=== PATIENT | male | born 1945 | race Hispanic/Latino ===

== ENCOUNTER 2020-12-25 14:03 | Emergency (ER) | payer MEDICARE ==
[2020-12-25] MEDS ORDERED: Ketorolac Tromethamine 60 MG/2 ML VIAL ONE (15:07)
== END 2020-12-25 18:00 | disposition home or self-care (01) ==
LOC: NAV ERS 14:03
DX: S76.012A Strain of muscle, fascia and tendon of left hip, initial encounter (principal); I11.0 Hypertensive heart disease with heart failure; I50.9 Heart failure, unspecified; G43.909 Migraine, unspecified, not intractable, without status migrainosus; E11.51 Type 2 diabetes mellitus with diabetic peripheral angiopathy without gangrene; E78.5 Hyperlipidemia, unspecified; Z79.899 Other long term (current) drug therapy; X50.1XXA Overexertion from prolonged static or awkward postures, initial encounter
CPT/HCPCS: 96372; J1885

== ENCOUNTER 2022-05-05 10:09 | Emergency (ER) | payer MEDICARE, OTHER ==
[2022-05-05 10:39] LABS: #Basophils 0.1 thou/uL (0.0-0.2); #Eosinphils 0.1 thou/uL (0.0-0.7); #Monocytes 0.5 thou/uL (0.11-0.59); #Neutrophils 5.5 thou/uL (1.40-6.50); %Basophils 0.8 % (0.0-1.0); %Eosinophils 1.6 % (0.0-10.0); %Lymphocytes 24.1 % (21.0-51.0); %Monocytes 5.8 % (0.0-10.0); %Neutrophils 67.6 % (42.0-75.0); Hemoglobin 11.1 g/dL (14.0-18.0); Mean Corpuscular HGB CONC 33.4 g/dL (32.0-36.0); Mean Corpuscular Hemoglobin 31.6 pg (27.0-31.0); Mean Corpuscular Volume 94.6 fl (78.0-98.0); Mean Platelet Volume 8.8 fL (7.4-10.4); Platelet Count 203 10x3/uL (130-400); RBC Distribution Width 12.4 % (11.5-14.5); Red Blood Cell (RBC) Count 3.53 mill/uL (4.70-6.10); White Blood Cell (WBC) Count 8.2 10x3/uL (4.8-10.8)
[2022-05-05 10:58] LABS: ALT (SGPT) 14 U/L (8-55); AST (SGOT) 8 U/L (5-34); Albumin 3.3 g/dL (3.4-4.8); Alkaline Phosphatase 119 U/L (40-110); Anion Gap 13 mmol/L (10-20); BUN (Urea Nitrogen) 16 mg/dL (8.4-25.7); Bilirubin, Total 0.6 mg/dL (0.2-1.2); Calc. Creatinine Clearance 0 mL/min (70-130); Calcium 8.1 mg/dL (7.8-10.44); Carbon Dioxide 25 mmol/L (23-31); Chloride 104 mmol/L (98-107); Estimated GFR 66; Globulin 3.2 g/dL (2.4-3.5); Glucose 170 mg/dL (83-110); Potassium 3.5 mmol/L (3.5-5.1); Protein, Total 6.5 g/dL (5.8-8.1); Sodium 138 mmol/L (136-145)
[2022-05-05] MEDS ORDERED: Sodium Chloride 0.9% 500 ML ONE ×2 (11:11→12:39)
[2022-05-05 12:32] LABS: Bilirubin Small (Negative); Blood, Urine Moderate (Negative); Clarity Cloudy (Clear); Glucose, Urine (Dipstick) 100 mg/dL (Negative); Ketone, Urine 15 mg/dL (Negative); Leukocyte Large (Negative); Nitrite Positive (Negative); Protein, Urine (Dipstick) > or equal to 300 mg/dL (Neg-Trace); Specific Gravity, Urine 1.028 (1.005-1.030); pH, Urine 5.5 (5.0-9.0)
[2022-05-05 12:33] LABS: Bacteria/HPF 2+ HPF (None Seen); WBC/HPF 21-50 HPF (0-3)
[2022-05-05] MEDS ORDERED: Sodium Chloride 0.9% 100 ML ONE (13:23)
[2022-05-05] MEDS ORDERED: cefTRIAXone\\ROCEPHIN 2 GM VIAL ONE (13:23)
[2022-05-05 14:10] LABS: Lactic Acid 1.6 mmol/L (0.5-2.2)
== END 2022-05-05 15:48 | disposition home or self-care (01) ==
LOC: NAV ERS 10:09
DX: N39.0 Urinary tract infection, site not specified (principal); E86.0 Dehydration; I50.9 Heart failure, unspecified; I11.0 Hypertensive heart disease with heart failure; E11.9 Type 2 diabetes mellitus without complications; E78.00 Pure hypercholesterolemia, unspecified; G43.909 Migraine, unspecified, not intractable, without status migrainosus; I25.10 Atherosclerotic heart disease of native coronary artery without angina pectoris; Z87.891 Personal history of nicotine dependence; Z79.4 Long term (current) use of insulin; Z79.02 Long term (current) use of antithrombotics/antiplatelets
CPT/HCPCS: 36416; 71045; 80053; 81003; 81015; 83605; 84484; 85025; 87040; 87086; 93005; 96365; 36415-59; J0696; J3490; J7030

== ENCOUNTER 2022-08-05 15:54 | Inpatient (IN) | payer OTHER ==
[2022-08-06] MEDS ORDERED: HumaLOG 300 UNITS/3 ML VIAL SC PRN (11:35)
[2022-08-06] MEDS ORDERED: Bisacodyl 5 MG TAB PO PRN (11:35)
[2022-08-06] MEDS ORDERED: Dextrose 50% Abboject 50 ML SYRINGE SLOW IVP PRN (11:35)
[2022-08-06] MEDS ORDERED: Ondansetron ODT 4 MG TAB SL PRN (11:35)
[2022-08-06] MEDS: Heparin 5,000 UNITS/ML VIAL SC SCH ×2 (16:15→20:38)
[2022-08-06] MEDS: metFORMIN 500 MG TAB PO SCH (16:16)
[2022-08-06] MEDS: Lantus 1000 UNITS/10 ML VIAL SC SCH (20:41)
[2022-08-06] MEDS: Montelukast Sodium 10 mg Tablet PO SCH (20:43)
[2022-08-06] MEDS: Carvedilol 6.25 MG TAB PO SCH (20:43)
[2022-08-06] MEDS: Sacubitril 49 MG/Valsartan 51 MG TABLET PO SCH (20:43)
[2022-08-06] MEDS: Gabapentin 100 MG CAP PO SCH (20:46)
[2022-08-06] MEDS ORDERED: Lantus 1000 UNITS/10 ML VIAL SC SCH (21:00)
[2022-08-06] MEDS ORDERED: Carvedilol 3.125 MG TAB PO SCH ×2 (21:00)
[2022-08-06] MEDS ORDERED: Non-Formulary Item 1 EACH (Ranolazine [Ranexa] 1,000 MG Tab.Er.12h) PO SCH (21:00)
[2022-08-06] MEDS ORDERED: Atorvastatin Calcium 40 MG TAB PO SCH (21:00)
[2022-08-07 05:49] LABS: #Basophils 0.2 thou/uL (0.0-0.2); #Eosinphils 0.2 thou/uL (0.0-0.7); #Lymphocytes 2.4 thou/uL (1.20-3.40); #Monocytes 0.8 thou/uL (0.11-0.59); #Neutrophils 7.1 thou/uL (1.40-6.50); %Basophils 1.5 % (0.0-1.0); %Eosinophils 2.3 % (0.0-10.0); %Lymphocytes 22.3 % (21.0-51.0); %Monocytes 7.5 % (0.0-10.0); %Neutrophils 66.4 % (42.0-75.0); Hemoglobin 10.4 g/dL (14.0-18.0); Mean Corpuscular HGB CONC 32.6 g/dL (32.0-36.0); Mean Corpuscular Hemoglobin 30.6 pg (27.0-31.0); Mean Platelet Volume 7.7 fL (7.4-10.4); Platelet Count 254 10x3/uL (130-400); RBC Distribution Width 13.3 % (11.5-14.5); Red Blood Cell (RBC) Count 3.39 mill/uL (4.70-6.10); White Blood Cell (WBC) Count 10.6 10x3/uL (4.8-10.8)
[2022-08-07 05:51] LABS: ALT (SGPT) 16 U/L (8-55); AST (SGOT) 15 U/L (5-34); Albumin 3.6 g/dL (3.4-4.8); Alkaline Phosphatase 72 U/L (40-110); Anion Gap 14 mmol/L (10-20); BUN (Urea Nitrogen) 29 mg/dL (8.4-25.7); Bilirubin, Total 0.6 mg/dL (0.2-1.2); Calc. Creatinine Clearance 58 mL/min (70-130); Calcium 8.5 mg/dL (7.8-10.44); Carbon Dioxide 23 mmol/L (23-31); Chloride 104 mmol/L (98-107); Estimated GFR 65; Globulin 3.4 g/dL (2.4-3.5); Glucose 106 mg/dL (83-110); Potassium 3.7 mmol/L (3.5-5.1); Sodium 137 mmol/L (136-145)
[2022-08-07] MEDS: metFORMIN 500 MG TAB PO SCH ×2 (08:31→16:10)
[2022-08-07] MEDS: Clopidogrel Bisulfate 75 MG TAB PO SCH (08:32)
[2022-08-07] MEDS: Aspirin 81 mg Enteric Coated Tablet PO SCH (08:32)
[2022-08-07] MEDS: Carvedilol 6.25 MG TAB PO SCH ×2 (08:32→20:22)
[2022-08-07] MEDS: Sacubitril 49 MG/Valsartan 51 MG TABLET PO SCH ×2 (08:32→20:22)
[2022-08-07] MEDS: Gabapentin 100 MG CAP PO SCH ×2 (08:33→20:22)
[2022-08-07] MEDS: Atorvastatin Calcium 40 MG TAB PO SCH (08:33)
[2022-08-07] MEDS: Tamsulosin HCl 0.4 MG CAP PO SCH (08:33)
[2022-08-07] MEDS: Spironolactone 25 MG TAB PO SCH (08:33)
[2022-08-07] MEDS: Heparin 5,000 UNITS/ML VIAL SC SCH ×3 (08:45→20:19)
[2022-08-07] MEDS ORDERED: Tamsulosin HCl 0.4 MG CAP PO SCH (09:00)
[2022-08-07 09:14] LABS: Bilirubin Small (Negative); Blood, Urine Moderate (Negative); Clarity Cloudy (Clear); Glucose, Urine (Dipstick) Negative (Negative); Ketone, Urine Negative (Negative); Leukocyte Large (Negative); Nitrite Negative (Negative); Protein, Urine (Dipstick) 100 mg/dL (Neg-Trace)
[2022-08-07 09:18] LABS: pH, Urine Greater/Equal 9.0 (5.0-9.0)
[2022-08-07 09:19] LABS: Bacteria/HPF 4+ HPF (None Seen); RBC/HPF 21-50 HPF (0-3); WBC/HPF Greater Than 50 HPF (0-3)
[2022-08-07] MEDS: cefTRIAXone\\ROCEPHIN 1 GM in Sodium Chloride 0.9% 100 ML IVPB SCH (12:21)
[2022-08-07] MEDS: HumaLOG 300 UNITS/3 ML VIAL SC PRN (19:13)
[2022-08-07] MEDS: Montelukast Sodium 10 mg Tablet PO SCH (20:22)
[2022-08-07] MEDS: Lantus 1000 UNITS/10 ML VIAL SC SCH (20:33)
[2022-08-07] MEDS: traMADol HCl 50 MG TAB PO PRN (22:29)
[2022-08-08] MEDS: Gabapentin 100 MG CAP PO SCH ×2 (07:50→20:19)
[2022-08-08] MEDS: Tamsulosin HCl 0.4 MG CAP PO SCH (07:50)
[2022-08-08] MEDS: metFORMIN 500 MG TAB PO SCH ×2 (07:50→17:47)
[2022-08-08] MEDS: Aspirin 81 mg Enteric Coated Tablet PO SCH (07:50)
[2022-08-08] MEDS: Sacubitril 49 MG/Valsartan 51 MG TABLET PO SCH ×2 (07:50→20:19)
[2022-08-08] MEDS: Carvedilol 6.25 MG TAB PO SCH ×2 (07:51→20:18)
[2022-08-08] MEDS: Spironolactone 25 MG TAB PO SCH (07:51)
[2022-08-08] MEDS: Clopidogrel Bisulfate 75 MG TAB PO SCH (07:53)
[2022-08-08] MEDS: Atorvastatin Calcium 40 MG TAB PO SCH (07:54)
[2022-08-08] MEDS: Heparin 5,000 UNITS/ML VIAL SC SCH ×3 (08:00→20:23)
[2022-08-08] MEDS: Senokot S 8.6-50 MG TAB PO PRN (09:52)
[2022-08-08] MEDS: cefTRIAXone\\ROCEPHIN 1 GM in Sodium Chloride 0.9% 100 ML IVPB SCH (10:00)
[2022-08-08] MEDS: Montelukast Sodium 10 mg Tablet PO SCH (20:18)
[2022-08-08] MEDS: Lantus 1000 UNITS/10 ML VIAL SC SCH (20:23)
[2022-08-09 05:55] LABS: #Lymphocytes 1.9 thou/uL (1.20-3.40); #Monocytes 0.8 thou/uL (0.11-0.59); #Neutrophils 7.8 thou/uL (1.40-6.50); %Basophils 1.5 % (0.0-1.0); %Eosinophils 1.9 % (0.0-10.0); %Lymphocytes 17.3 % (21.0-51.0); %Monocytes 7.1 % (0.0-10.0); %Neutrophils 72.2 % (42.0-75.0); Hemoglobin 10.4 g/dL (14.0-18.0); Manual Diff?? NO; Mean Corpuscular HGB CONC 32.4 g/dL (32.0-36.0); Mean Corpuscular Hemoglobin 30.8 pg (27.0-31.0); Mean Platelet Volume 7.6 fL (7.4-10.4); Platelet Count 274 10x3/uL (130-400); RBC Distribution Width 13.3 % (11.5-14.5); Red Blood Cell (RBC) Count 3.39 mill/uL (4.70-6.10); White Blood Cell (WBC) Count 10.8 10x3/uL (4.8-10.8)
[2022-08-09 05:56] LABS: #Basophils 0.2 thou/uL (0.0-0.2); #Eosinphils 0.2 thou/uL (0.0-0.7)
[2022-08-09 06:07] LABS: Anion Gap 16 mmol/L (10-20); BUN (Urea Nitrogen) 31 mg/dL (8.4-25.7); Calc. Creatinine Clearance 55 mL/min (70-130); Calcium 8.3 mg/dL (7.8-10.44); Carbon Dioxide 23 mmol/L (23-31); Chloride 105 mmol/L (98-107); Estimated GFR 61; Glucose 116 mg/dL (83-110); Potassium 3.8 mmol/L (3.5-5.1); Sodium 140 mmol/L (136-145)
[2022-08-09] MEDS: traMADol HCl 50 MG TAB PO PRN (08:58)
[2022-08-09] MEDS: Tamsulosin HCl 0.4 MG CAP PO SCH (08:59)
[2022-08-09] MEDS: metFORMIN 500 MG TAB PO SCH ×2 (08:59→17:54)
[2022-08-09] MEDS: Aspirin 81 mg Enteric Coated Tablet PO SCH (08:59)
[2022-08-09] MEDS: Sacubitril 49 MG/Valsartan 51 MG TABLET PO SCH ×2 (08:59→20:02)
[2022-08-09] MEDS: Spironolactone 25 MG TAB PO SCH (08:59)
[2022-08-09] MEDS: Atorvastatin Calcium 40 MG TAB PO SCH (09:00)
[2022-08-09] MEDS: Clopidogrel Bisulfate 75 MG TAB PO SCH (09:00)
[2022-08-09] MEDS: Gabapentin 100 MG CAP PO SCH ×2 (09:00→20:01)
[2022-08-09] MEDS: Carvedilol 6.25 MG TAB PO SCH ×2 (09:01→20:01)
[2022-08-09] MEDS: Heparin 5,000 UNITS/ML VIAL SC SCH ×3 (09:09→20:02)
[2022-08-09] MEDS ORDERED: Piperacillin/Tazobactam 3.375 GM in Sodium Chloride 0.9% 100 ML IVPB SCH ×2 (12:00→14:00)
[2022-08-09] MEDS ORDERED: Amlodipine 5 MG TAB PO SCH (12:45)
[2022-08-09] MEDS: Lantus 1000 UNITS/10 ML VIAL SC SCH (20:00)
[2022-08-09] MEDS: Montelukast Sodium 10 mg Tablet PO SCH (20:02)
[2022-08-09] MEDS: Piperacillin/Tazobactam 3.375 GM in Sodium Chloride 0.9% 100 ML IVPB SCH (20:43)
[2022-08-10] MEDS: Piperacillin/Tazobactam 3.375 GM in Sodium Chloride 0.9% 100 ML IVPB SCH ×3 (05:44→21:51)
[2022-08-10] MEDS: traMADol HCl 50 MG TAB PO PRN (08:58)
[2022-08-10] MEDS: Heparin 5,000 UNITS/ML VIAL SC SCH ×3 (08:58→21:40)
[2022-08-10] MEDS: Tamsulosin HCl 0.4 MG CAP PO SCH (08:59)
[2022-08-10] MEDS: Atorvastatin Calcium 40 MG TAB PO SCH (08:59)
[2022-08-10] MEDS: Aspirin 81 mg Enteric Coated Tablet PO SCH (08:59)
[2022-08-10] MEDS: Spironolactone 25 MG TAB PO SCH (09:00)
[2022-08-10] MEDS: Amlodipine 5 MG TAB PO SCH (09:00)
[2022-08-10] MEDS: metFORMIN 500 MG TAB PO SCH ×2 (09:00→17:51)
[2022-08-10] MEDS: Clopidogrel Bisulfate 75 MG TAB PO SCH (09:01)
[2022-08-10] MEDS: Gabapentin 100 MG CAP PO SCH ×2 (09:01→21:38)
[2022-08-10] MEDS: Sacubitril 49 MG/Valsartan 51 MG TABLET PO SCH ×2 (09:01→21:38)
[2022-08-10] MEDS: Carvedilol 6.25 MG TAB PO SCH ×2 (09:01→21:39)
[2022-08-10] MEDS: Acetaminophen 325 MG TAB PO PRN (12:49)
[2022-08-10] MEDS: Montelukast Sodium 10 mg Tablet PO SCH (21:39)
[2022-08-10] MEDS: Lantus 1000 UNITS/10 ML VIAL SC SCH (21:40)
[2022-08-11] MEDS: Piperacillin/Tazobactam 3.375 GM in Sodium Chloride 0.9% 100 ML IVPB SCH ×3 (05:41→21:44)
[2022-08-11 06:04] LABS: #Basophils 0.1 thou/uL (0.0-0.2); #Eosinphils 0.2 thou/uL (0.0-0.7); #Lymphocytes 1.9 thou/uL (1.20-3.40); #Monocytes 0.7 thou/uL (0.11-0.59); #Neutrophils 6.9 thou/uL (1.40-6.50); %Basophils 1.4 % (0.0-1.0); %Lymphocytes 19.5 % (21.0-51.0); %Monocytes 7.4 % (0.0-10.0); %Neutrophils 69.7 % (42.0-75.0); Hemoglobin 9.5 g/dL (14.0-18.0); Mean Corpuscular Hemoglobin 31.3 pg (27.0-31.0); Mean Corpuscular Volume 94.8 fl (78.0-98.0); Mean Platelet Volume 7.7 fL (7.4-10.4); Platelet Count 235 10x3/uL (130-400); RBC Distribution Width 13.6 % (11.5-14.5); Red Blood Cell (RBC) Count 3.04 mill/uL (4.70-6.10); White Blood Cell (WBC) Count 9.9 10x3/uL (4.8-10.8)
[2022-08-11 06:12] LABS: Anion Gap 15 mmol/L (10-20); BUN (Urea Nitrogen) 27 mg/dL (8.4-25.7); Calc. Creatinine Clearance 47 mL/min (70-130); Carbon Dioxide 21 mmol/L (23-31); Chloride 107 mmol/L (98-107); Estimated GFR 50; Glucose 103 mg/dL (83-110); Potassium 4.1 mmol/L (3.5-5.1); Sodium 139 mmol/L (136-145)
[2022-08-11] MEDS: Gabapentin 100 MG CAP PO SCH ×2 (08:12→21:44)
[2022-08-11] MEDS: Spironolactone 25 MG TAB PO SCH (08:12)
[2022-08-11] MEDS: Carvedilol 6.25 MG TAB PO SCH ×2 (08:13→21:45)
[2022-08-11] MEDS: Tamsulosin HCl 0.4 MG CAP PO SCH (08:14)
[2022-08-11] MEDS: Amlodipine 5 MG TAB PO SCH (08:14)
[2022-08-11] MEDS: Aspirin 81 mg Enteric Coated Tablet PO SCH (08:14)
[2022-08-11] MEDS: metFORMIN 500 MG TAB PO SCH ×2 (08:14→17:06)
[2022-08-11] MEDS: Clopidogrel Bisulfate 75 MG TAB PO SCH (08:14)
[2022-08-11] MEDS: Sacubitril 49 MG/Valsartan 51 MG TABLET PO SCH ×2 (08:15→21:45)
[2022-08-11] MEDS: Atorvastatin Calcium 40 MG TAB PO SCH (08:15)
[2022-08-11] MEDS: Heparin 5,000 UNITS/ML VIAL SC SCH ×3 (08:18→21:45)
[2022-08-11] MEDS: traMADol HCl 50 MG TAB PO PRN (12:33)
[2022-08-11] MEDS: Montelukast Sodium 10 mg Tablet PO SCH (21:45)
[2022-08-11] MEDS: Lantus 1000 UNITS/10 ML VIAL SC SCH (21:46)
[2022-08-12] MEDS: Piperacillin/Tazobactam 3.375 GM in Sodium Chloride 0.9% 100 ML IVPB SCH ×3 (05:44→21:22)
[2022-08-12] MEDS: traMADol HCl 50 MG TAB PO PRN (05:52)
[2022-08-12] MEDS: Sacubitril 49 MG/Valsartan 51 MG TABLET PO SCH ×2 (07:49→21:23)
[2022-08-12] MEDS: Aspirin 81 mg Enteric Coated Tablet PO SCH ×3 (07:50→08:00)
[2022-08-12] MEDS: Clopidogrel Bisulfate 75 MG TAB PO SCH (07:50)
[2022-08-12] MEDS: Carvedilol 6.25 MG TAB PO SCH ×2 (07:50→21:23)
[2022-08-12] MEDS: Atorvastatin Calcium 40 MG TAB PO SCH (07:50)
[2022-08-12] MEDS: Amlodipine 5 MG TAB PO SCH (07:53)
[2022-08-12] MEDS: metFORMIN 500 MG TAB PO SCH ×2 (07:53→16:29)
[2022-08-12] MEDS: Tamsulosin HCl 0.4 MG CAP PO SCH (07:53)
[2022-08-12] MEDS: Gabapentin 100 MG CAP PO SCH ×2 (07:54→21:24)
[2022-08-12] MEDS: Spironolactone 25 MG TAB PO SCH (07:55)
[2022-08-12] MEDS: Heparin 5,000 UNITS/ML VIAL SC SCH ×3 (08:30→21:23)
[2022-08-12] MEDS: Senokot S 8.6-50 MG TAB PO PRN (09:48)
[2022-08-12] MEDS: Montelukast Sodium 10 mg Tablet PO SCH (21:23)
[2022-08-12] MEDS: Lantus 1000 UNITS/10 ML VIAL SC SCH (21:25)
[2022-08-13] MEDS: Acetaminophen 325 MG TAB PO PRN ×2 (05:31→13:14)
[2022-08-13] MEDS: Piperacillin/Tazobactam 3.375 GM in Sodium Chloride 0.9% 100 ML IVPB SCH ×3 (05:32→21:54)
[2022-08-13] MEDS: Heparin 5,000 UNITS/ML VIAL SC SCH ×3 (08:32→21:47)
[2022-08-13] MEDS: traMADol HCl 50 MG TAB PO PRN ×2 (08:32→21:53)
[2022-08-13] MEDS: Gabapentin 100 MG CAP PO SCH ×2 (08:34→21:48)
[2022-08-13] MEDS: Sacubitril 49 MG/Valsartan 51 MG TABLET PO SCH ×2 (08:34→21:47)
[2022-08-13] MEDS: Clopidogrel Bisulfate 75 MG TAB PO SCH (08:34)
[2022-08-13] MEDS: Atorvastatin Calcium 40 MG TAB PO SCH (08:35)
[2022-08-13] MEDS: metFORMIN 500 MG TAB PO SCH ×2 (08:35→19:30)
[2022-08-13] MEDS: Spironolactone 25 MG TAB PO SCH (08:35)
[2022-08-13] MEDS: Aspirin 81 mg Enteric Coated Tablet PO SCH (08:35)
[2022-08-13] MEDS: Tamsulosin HCl 0.4 MG CAP PO SCH (08:35)
[2022-08-13] MEDS: Amlodipine 5 MG TAB PO SCH (08:35)
[2022-08-13] MEDS: Carvedilol 6.25 MG TAB PO SCH ×2 (08:36→21:48)
[2022-08-13] MEDS: Lantus 1000 UNITS/10 ML VIAL SC SCH (21:52)
[2022-08-13] MEDS: Montelukast Sodium 10 mg Tablet PO SCH (21:53)
[2022-08-14] MEDS: Piperacillin/Tazobactam 3.375 GM in Sodium Chloride 0.9% 100 ML IVPB SCH ×3 (05:49→21:55)
[2022-08-14] MEDS ORDERED: Amlodipine 5 MG TAB PO SCH (06:05)
[2022-08-14] MEDS: Heparin 5,000 UNITS/ML VIAL SC SCH ×3 (09:15→21:55)
[2022-08-14] MEDS: Aspirin 81 mg Enteric Coated Tablet PO SCH (09:17)
[2022-08-14] MEDS: Clopidogrel Bisulfate 75 MG TAB PO SCH (09:17)
[2022-08-14] MEDS: Spironolactone 25 MG TAB PO SCH (09:17)
[2022-08-14] MEDS: Tamsulosin HCl 0.4 MG CAP PO SCH (09:17)
[2022-08-14] MEDS: Sacubitril 49 MG/Valsartan 51 MG TABLET PO SCH ×2 (09:17→21:54)
[2022-08-14] MEDS: Atorvastatin Calcium 40 MG TAB PO SCH (09:17)
[2022-08-14] MEDS: Gabapentin 100 MG CAP PO SCH ×2 (09:17→21:54)
[2022-08-14] MEDS: Amlodipine 10 MG TAB PO SCH (09:17)
[2022-08-14] MEDS: metFORMIN 500 MG TAB PO SCH ×2 (09:18→17:13)
[2022-08-14] MEDS: Carvedilol 6.25 MG TAB PO SCH ×2 (09:18→21:53)
[2022-08-14] MEDS: Acetaminophen 325 MG TAB PO PRN (09:28)
[2022-08-14] MEDS: Montelukast Sodium 10 mg Tablet PO SCH (21:55)
[2022-08-14] MEDS: Lantus 1000 UNITS/10 ML VIAL SC SCH (21:55)
[2022-08-15] MEDS: Acetaminophen 325 MG TAB PO PRN (05:51)
[2022-08-15 05:59] LABS: #Basophils 0.1 thou/uL (0.0-0.2); #Eosinphils 0.3 thou/uL (0.0-0.7); #Lymphocytes 2.3 thou/uL (1.20-3.40); #Monocytes 0.6 thou/uL (0.11-0.59); #Neutrophils 6.5 thou/uL (1.40-6.50); %Basophils 1.3 % (0.0-1.0); %Eosinophils 3.2 % (0.0-10.0); %Lymphocytes 23.5 % (21.0-51.0); %Monocytes 5.9 % (0.0-10.0); %Neutrophils 66.1 % (42.0-75.0); Hemoglobin 9.8 g/dL (14.0-18.0); Mean Corpuscular HGB CONC 32.5 g/dL (32.0-36.0); Mean Corpuscular Volume 95.4 fl (78.0-98.0); Mean Platelet Volume 7.5 fL (7.4-10.4); Platelet Count 236 10x3/uL (130-400); RBC Distribution Width 13.5 % (11.5-14.5); Red Blood Cell (RBC) Count 3.17 mill/uL (4.70-6.10); White Blood Cell (WBC) Count 9.9 10x3/uL (4.8-10.8)
[2022-08-15 06:05] LABS: Anion Gap 16 mmol/L (10-20); BUN (Urea Nitrogen) 17 mg/dL (8.4-25.7); Calc. Creatinine Clearance 79 mL/min (70-130); Calcium 7.9 mg/dL (7.8-10.44); Carbon Dioxide 22 mmol/L (23-31); Chloride 107 mmol/L (98-107); Estimated GFR 89; Glucose 90 mg/dL (83-110); Potassium 3.5 mmol/L (3.5-5.1); Sodium 141 mmol/L (136-145)
[2022-08-15] MEDS: metFORMIN 500 MG TAB PO SCH ×2 (09:08→17:05)
[2022-08-15] MEDS: Spironolactone 25 MG TAB PO SCH (09:10)
[2022-08-15] MEDS: Aspirin 81 mg Enteric Coated Tablet PO SCH (09:10)
[2022-08-15] MEDS: Amlodipine 10 MG TAB PO SCH (09:10)
[2022-08-15] MEDS: Sacubitril 49 MG/Valsartan 51 MG TABLET PO SCH ×2 (09:11→20:50)
[2022-08-15] MEDS: Carvedilol 6.25 MG TAB PO SCH ×2 (09:11→20:57)
[2022-08-15] MEDS: Tamsulosin HCl 0.4 MG CAP PO SCH (09:12)
[2022-08-15] MEDS: Clopidogrel Bisulfate 75 MG TAB PO SCH (09:12)
[2022-08-15] MEDS: Atorvastatin Calcium 40 MG TAB PO SCH (09:13)
[2022-08-15] MEDS: Gabapentin 100 MG CAP PO SCH ×2 (09:14→20:50)
[2022-08-15] MEDS: Heparin 5,000 UNITS/ML VIAL SC SCH ×3 (09:15→20:50)
[2022-08-15] MEDS: Montelukast Sodium 10 mg Tablet PO SCH (20:50)
[2022-08-15] MEDS: Lantus 1000 UNITS/10 ML VIAL SC SCH (20:50)
[2022-08-15] MEDS: traMADol HCl 50 MG TAB PO PRN (20:52)
[2022-08-16] MEDS: Amlodipine 10 MG TAB PO SCH (08:34)
[2022-08-16] MEDS: metFORMIN 500 MG TAB PO SCH ×2 (08:34→17:12)
[2022-08-16] MEDS: Tamsulosin HCl 0.4 MG CAP PO SCH (08:34)
[2022-08-16] MEDS: Gabapentin 100 MG CAP PO SCH ×2 (08:35→22:03)
[2022-08-16] MEDS: Sacubitril 49 MG/Valsartan 51 MG TABLET PO SCH ×2 (08:38→22:02)
[2022-08-16] MEDS: Atorvastatin Calcium 40 MG TAB PO SCH (08:38)
[2022-08-16] MEDS: Heparin 5,000 UNITS/ML VIAL SC SCH ×3 (08:38→22:04)
[2022-08-16] MEDS: Carvedilol 6.25 MG TAB PO SCH ×2 (08:38→22:02)
[2022-08-16] MEDS: Spironolactone 25 MG TAB PO SCH (08:38)
[2022-08-16] MEDS: Clopidogrel Bisulfate 75 MG TAB PO SCH (08:38)
[2022-08-16] MEDS: Aspirin 81 mg Enteric Coated Tablet PO SCH (08:39)
[2022-08-16] MEDS: traMADol HCl 50 MG TAB PO PRN (08:42)
[2022-08-16] MEDS: Montelukast Sodium 10 mg Tablet PO SCH (22:02)
[2022-08-16] MEDS: Lantus 1000 UNITS/10 ML VIAL SC SCH (22:04)
[2022-08-17] MEDS: Heparin 5,000 UNITS/ML VIAL SC SCH ×3 (08:26→21:15)
[2022-08-17] MEDS: Sacubitril 49 MG/Valsartan 51 MG TABLET PO SCH ×2 (08:27→21:12)
[2022-08-17] MEDS: Gabapentin 100 MG CAP PO SCH ×2 (08:27→21:12)
[2022-08-17] MEDS: Tamsulosin HCl 0.4 MG CAP PO SCH (08:29)
[2022-08-17] MEDS: Amlodipine 10 MG TAB PO SCH (08:29)
[2022-08-17] MEDS: Carvedilol 6.25 MG TAB PO SCH ×2 (08:29→21:12)
[2022-08-17] MEDS: Spironolactone 25 MG TAB PO SCH (08:29)
[2022-08-17] MEDS: Clopidogrel Bisulfate 75 MG TAB PO SCH (08:29)
[2022-08-17] MEDS: metFORMIN 500 MG TAB PO SCH ×2 (08:29→17:40)
[2022-08-17] MEDS: Atorvastatin Calcium 40 MG TAB PO SCH (08:29)
[2022-08-17] MEDS: Aspirin 81 mg Enteric Coated Tablet PO SCH (08:30)
[2022-08-17] MEDS: Montelukast Sodium 10 mg Tablet PO SCH (21:12)
[2022-08-17] MEDS: Lantus 1000 UNITS/10 ML VIAL SC SCH (21:13)
[2022-08-18 05:45] LABS: #Basophils 0.1 thou/uL (0.0-0.2); #Eosinphils 0.2 thou/uL (0.0-0.7); #Lymphocytes 2.5 thou/uL (1.20-3.40); #Monocytes 0.5 thou/uL (0.11-0.59); #Neutrophils 6.4 thou/uL (1.40-6.50); %Basophils 0.7 % (0.0-1.0); %Lymphocytes 25.7 % (21.0-51.0); %Monocytes 5.5 % (0.0-10.0); Mean Corpuscular HGB CONC 33.3 g/dL (32.0-36.0); Mean Corpuscular Hemoglobin 31.4 pg (27.0-31.0); Mean Corpuscular Volume 94.3 fl (78.0-98.0); Mean Platelet Volume 7.9 fL (7.4-10.4); Platelet Count 216 10x3/uL (130-400); RBC Distribution Width 13.8 % (11.5-14.5); Red Blood Cell (RBC) Count 2.88 mill/uL (4.70-6.10); White Blood Cell (WBC) Count 9.8 10x3/uL (4.8-10.8)
[2022-08-18 05:55] LABS: Anion Gap 16 mmol/L (10-20); BUN (Urea Nitrogen) 14 mg/dL (8.4-25.7); Calc. Creatinine Clearance 74 mL/min (70-130); Calcium 7.8 mg/dL (7.8-10.44); Carbon Dioxide 22 mmol/L (23-31); Chloride 107 mmol/L (98-107); Estimated GFR 86; Glucose 93 mg/dL (83-110); Potassium 3.6 mmol/L (3.5-5.1); Sodium 141 mmol/L (136-145)
[2022-08-18] MEDS: Heparin 5,000 UNITS/ML VIAL SC SCH ×3 (08:23→21:12)
[2022-08-18] MEDS: Amlodipine 10 MG TAB PO SCH (08:24)
[2022-08-18] MEDS: Clopidogrel Bisulfate 75 MG TAB PO SCH (08:24)
[2022-08-18] MEDS: Carvedilol 6.25 MG TAB PO SCH ×2 (08:24→21:12)
[2022-08-18] MEDS: Tamsulosin HCl 0.4 MG CAP PO SCH (08:24)
[2022-08-18] MEDS: metFORMIN 500 MG TAB PO SCH ×2 (08:24→17:11)
[2022-08-18] MEDS: Aspirin 81 mg Enteric Coated Tablet PO SCH (08:24)
[2022-08-18] MEDS: Sacubitril 49 MG/Valsartan 51 MG TABLET PO SCH ×2 (08:25→21:12)
[2022-08-18] MEDS: Gabapentin 100 MG CAP PO SCH ×2 (08:25→21:11)
[2022-08-18] MEDS: Atorvastatin Calcium 40 MG TAB PO SCH (08:26)
[2022-08-18] MEDS: Spironolactone 25 MG TAB PO SCH (08:26)
[2022-08-18] MEDS ORDERED: Collagenase 250 UNITS/GM Ointment 30 GM TUBE TOP SCH (14:00)
[2022-08-18] MEDS: Lantus 1000 UNITS/10 ML VIAL SC SCH (21:08)
[2022-08-18] MEDS: Montelukast Sodium 10 mg Tablet PO SCH (21:12)
[2022-08-19] MEDS: Carvedilol 6.25 MG TAB PO SCH (08:13)
[2022-08-19] MEDS: Clopidogrel Bisulfate 75 MG TAB PO SCH (08:13)
[2022-08-19] MEDS: Spironolactone 25 MG TAB PO SCH (08:13)
[2022-08-19] MEDS: Tamsulosin HCl 0.4 MG CAP PO SCH (08:13)
[2022-08-19] MEDS: metFORMIN 500 MG TAB PO SCH ×2 (08:14→16:45)
[2022-08-19] MEDS: Sacubitril 49 MG/Valsartan 51 MG TABLET PO SCH ×2 (08:14→21:01)
[2022-08-19] MEDS: Atorvastatin Calcium 40 MG TAB PO SCH (08:15)
[2022-08-19] MEDS: Amlodipine 10 MG TAB PO SCH (08:15)
[2022-08-19] MEDS: Gabapentin 100 MG CAP PO SCH ×2 (08:15→21:02)
[2022-08-19] MEDS: Aspirin 81 mg Enteric Coated Tablet PO SCH (08:15)
[2022-08-19] MEDS: Heparin 5,000 UNITS/ML VIAL SC SCH ×3 (08:20→21:02)
[2022-08-19] MEDS: Carvedilol 25 MG TAB PO SCH (21:01)
[2022-08-19] MEDS: Montelukast Sodium 10 mg Tablet PO SCH (21:01)
[2022-08-19] MEDS: Lantus 1000 UNITS/10 ML VIAL SC SCH (21:05)
[2022-08-20] MEDS: Atorvastatin Calcium 40 MG TAB PO SCH (07:50)
[2022-08-20] MEDS: Spironolactone 25 MG TAB PO SCH (07:50)
[2022-08-20] MEDS: Clopidogrel Bisulfate 75 MG TAB PO SCH (07:50)
[2022-08-20] MEDS: Amlodipine 10 MG TAB PO SCH (07:51)
[2022-08-20] MEDS: Aspirin 81 mg Enteric Coated Tablet PO SCH (07:51)
[2022-08-20] MEDS: Carvedilol 25 MG TAB PO SCH ×2 (07:51→20:50)
[2022-08-20] MEDS: Tamsulosin HCl 0.4 MG CAP PO SCH (07:51)
[2022-08-20] MEDS: Gabapentin 100 MG CAP PO SCH ×2 (07:52→20:49)
[2022-08-20] MEDS: metFORMIN 500 MG TAB PO SCH ×2 (07:52→15:36)
[2022-08-20] MEDS: Sacubitril 49 MG/Valsartan 51 MG TABLET PO SCH ×2 (07:52→20:49)
[2022-08-20] MEDS: Heparin 5,000 UNITS/ML VIAL SC SCH ×3 (07:53→20:50)
[2022-08-20] MEDS: Acetaminophen 325 MG TAB PO PRN (11:11)
[2022-08-20] MEDS: Collagenase 250 UNITS/GM Ointment 30 GM TUBE TOP SCH (13:26)
[2022-08-20] MEDS: traMADol HCl 50 MG TAB PO PRN (15:40)
[2022-08-20] MEDS: Montelukast Sodium 10 mg Tablet PO SCH (20:49)
[2022-08-20] MEDS: Lantus 1000 UNITS/10 ML VIAL SC SCH (20:51)
[2022-08-21] MEDS: Heparin 5,000 UNITS/ML VIAL SC SCH ×3 (07:50→20:49)
[2022-08-21] MEDS: Gabapentin 100 MG CAP PO SCH ×2 (07:51→20:48)
[2022-08-21] MEDS: Amlodipine 10 MG TAB PO SCH (07:52)
[2022-08-21] MEDS: metFORMIN 500 MG TAB PO SCH ×2 (07:52→16:36)
[2022-08-21] MEDS: Spironolactone 25 MG TAB PO SCH (07:52)
[2022-08-21] MEDS: Clopidogrel Bisulfate 75 MG TAB PO SCH (07:52)
[2022-08-21] MEDS: Atorvastatin Calcium 40 MG TAB PO SCH (07:53)
[2022-08-21] MEDS: Sacubitril 49 MG/Valsartan 51 MG TABLET PO SCH ×2 (07:53→20:48)
[2022-08-21] MEDS: Tamsulosin HCl 0.4 MG CAP PO SCH (07:53)
[2022-08-21] MEDS: Aspirin 81 mg Enteric Coated Tablet PO SCH (07:53)
[2022-08-21] MEDS: Carvedilol 25 MG TAB PO SCH ×2 (07:53→20:48)
[2022-08-21] MEDS: traMADol HCl 50 MG TAB PO PRN (08:01)
[2022-08-21] MEDS: Montelukast Sodium 10 mg Tablet PO SCH (20:48)
[2022-08-21] MEDS: Lantus 1000 UNITS/10 ML VIAL SC SCH (21:43)
[2022-08-22 05:09] VITALS: BMI 29.9
[2022-08-22] MEDS: Sacubitril 49 MG/Valsartan 51 MG TABLET PO SCH ×2 (09:45→20:47)
[2022-08-22] MEDS: Tamsulosin HCl 0.4 MG CAP PO SCH (09:45)
[2022-08-22] MEDS: Heparin 5,000 UNITS/ML VIAL SC SCH ×3 (09:45→20:49)
[2022-08-22] MEDS: metFORMIN 500 MG TAB PO SCH ×2 (09:46→17:07)
[2022-08-22] MEDS: Amlodipine 10 MG TAB PO SCH (09:46)
[2022-08-22] MEDS: Carvedilol 25 MG TAB PO SCH ×2 (09:46→20:47)
[2022-08-22] MEDS: Aspirin 81 mg Enteric Coated Tablet PO SCH (09:46)
[2022-08-22] MEDS: Spironolactone 25 MG TAB PO SCH (09:46)
[2022-08-22] MEDS: Atorvastatin Calcium 40 MG TAB PO SCH (09:46)
[2022-08-22] MEDS: Clopidogrel Bisulfate 75 MG TAB PO SCH (09:46)
[2022-08-22] MEDS: Gabapentin 100 MG CAP PO SCH ×2 (09:47→20:48)
[2022-08-22] MEDS: Montelukast Sodium 10 mg Tablet PO SCH (20:47)
[2022-08-22] MEDS: Lantus 1000 UNITS/10 ML VIAL SC SCH (20:50)
[2022-08-23] MEDS: Heparin 5,000 UNITS/ML VIAL SC SCH ×3 (07:56→21:21)
[2022-08-23] MEDS: traMADol HCl 50 MG TAB PO PRN ×2 (08:00→13:52)
[2022-08-23] MEDS: metFORMIN 500 MG TAB PO SCH ×2 (08:02→15:09)
[2022-08-23] MEDS: Tamsulosin HCl 0.4 MG CAP PO SCH (08:02)
[2022-08-23] MEDS: Sacubitril 49 MG/Valsartan 51 MG TABLET PO SCH ×2 (08:03→21:20)
[2022-08-23] MEDS: Amlodipine 10 MG TAB PO SCH (08:03)
[2022-08-23] MEDS: Spironolactone 25 MG TAB PO SCH (08:03)
[2022-08-23] MEDS: Carvedilol 25 MG TAB PO SCH ×2 (08:04→21:20)
[2022-08-23] MEDS: Atorvastatin Calcium 40 MG TAB PO SCH (08:04)
[2022-08-23] MEDS: Clopidogrel Bisulfate 75 MG TAB PO SCH (08:04)
[2022-08-23] MEDS: Aspirin 81 mg Enteric Coated Tablet PO SCH (08:04)
[2022-08-23] MEDS: Gabapentin 100 MG CAP PO SCH ×2 (08:04→21:20)
[2022-08-23] MEDS: Collagenase 250 UNITS/GM Ointment 30 GM TUBE TOP SCH (08:54)
[2022-08-23] MEDS: Montelukast Sodium 10 mg Tablet PO SCH (21:20)
[2022-08-23] MEDS: Lantus 1000 UNITS/10 ML VIAL SC SCH (21:20)
[2022-08-24] MEDS: Tamsulosin HCl 0.4 MG CAP PO SCH (09:30)
[2022-08-24] MEDS: metFORMIN 500 MG TAB PO SCH ×2 (09:31→17:00)
[2022-08-24] MEDS: Carvedilol 25 MG TAB PO SCH ×2 (09:31→21:45)
[2022-08-24] MEDS: Aspirin 81 mg Enteric Coated Tablet PO SCH (09:31)
[2022-08-24] MEDS: Gabapentin 100 MG CAP PO SCH ×2 (09:31→21:44)
[2022-08-24] MEDS: Sacubitril 49 MG/Valsartan 51 MG TABLET PO SCH ×2 (09:31→21:44)
[2022-08-24] MEDS: Atorvastatin Calcium 40 MG TAB PO SCH (09:31)
[2022-08-24] MEDS: Amlodipine 10 MG TAB PO SCH (09:32)
[2022-08-24] MEDS: Clopidogrel Bisulfate 75 MG TAB PO SCH (09:32)
[2022-08-24] MEDS: Heparin 5,000 UNITS/ML VIAL SC SCH ×3 (09:32→21:37)
[2022-08-24] MEDS: Spironolactone 25 MG TAB PO SCH (09:32)
[2022-08-24] MEDS: HumaLOG 300 UNITS/3 ML VIAL SC PRN (11:43)
[2022-08-24] MEDS: Senokot S 8.6-50 MG TAB PO PRN (15:51)
[2022-08-24] MEDS: Lantus 1000 UNITS/10 ML VIAL SC SCH (21:38)
[2022-08-24] MEDS: Montelukast Sodium 10 mg Tablet PO SCH (21:45)
[2022-08-24] MEDS: Acetaminophen 325 MG TAB PO PRN (21:47)
[2022-08-25 05:59] LABS: #Basophils 0.1 thou/uL (0.0-0.2); #Eosinphils 0.2 thou/uL (0.0-0.7); #Lymphocytes 2.3 thou/uL (1.20-3.40); #Monocytes 0.6 thou/uL (0.11-0.59); #Neutrophils 5.3 thou/uL (1.40-6.50); %Basophils 1.1 % (0.0-1.0); %Eosinophils 2.7 % (0.0-10.0); %Monocytes 7.3 % (0.0-10.0); Hemoglobin 8.7 g/dL (14.0-18.0); Mean Corpuscular HGB CONC 33.2 g/dL (32.0-36.0); Mean Corpuscular Hemoglobin 30.8 pg (27.0-31.0); Mean Corpuscular Volume 92.9 fl (78.0-98.0); Mean Platelet Volume 7.6 fL (7.4-10.4); Platelet Count 248 10x3/uL (130-400); RBC Distribution Width 13.9 % (11.5-14.5); Red Blood Cell (RBC) Count 2.83 mill/uL (4.70-6.10); White Blood Cell (WBC) Count 8.5 10x3/uL (4.8-10.8)
[2022-08-25 06:09] LABS: Anion Gap 13 mmol/L (10-20); BUN (Urea Nitrogen) 19 mg/dL (8.4-25.7); Calc. Creatinine Clearance 82 mL/min (70-130); Calcium 8.1 mg/dL (7.8-10.44); Carbon Dioxide 25 mmol/L (23-31); Chloride 105 mmol/L (98-107); Estimated GFR 89; Glucose 81 mg/dL (83-110); Potassium 3.9 mmol/L (3.5-5.1); Sodium 139 mmol/L (136-145)
[2022-08-25] MEDS: Heparin 5,000 UNITS/ML VIAL SC SCH ×3 (08:45→21:24)
[2022-08-25] MEDS: Clopidogrel Bisulfate 75 MG TAB PO SCH (08:46)
[2022-08-25] MEDS: Tamsulosin HCl 0.4 MG CAP PO SCH (08:46)
[2022-08-25] MEDS: Sacubitril 49 MG/Valsartan 51 MG TABLET PO SCH ×2 (08:46→21:28)
[2022-08-25] MEDS: Atorvastatin Calcium 40 MG TAB PO SCH (08:46)
[2022-08-25] MEDS: Gabapentin 100 MG CAP PO SCH ×2 (08:46→21:28)
[2022-08-25] MEDS: metFORMIN 500 MG TAB PO SCH ×2 (08:46→17:11)
[2022-08-25] MEDS: Carvedilol 25 MG TAB PO SCH ×2 (08:47→21:28)
[2022-08-25] MEDS: Aspirin 81 mg Enteric Coated Tablet PO SCH (08:47)
[2022-08-25] MEDS: Amlodipine 10 MG TAB PO SCH (08:47)
[2022-08-25] MEDS: Spironolactone 25 MG TAB PO SCH (08:47)
[2022-08-25] MEDS: Collagenase 250 UNITS/GM Ointment 30 GM TUBE TOP SCH (14:51)
[2022-08-25] MEDS: Lantus 1000 UNITS/10 ML VIAL SC SCH (21:23)
[2022-08-25] MEDS: Montelukast Sodium 10 mg Tablet PO SCH (21:28)
[2022-08-26] MEDS: Sacubitril 49 MG/Valsartan 51 MG TABLET PO SCH ×2 (08:53→21:19)
[2022-08-26] MEDS: metFORMIN 500 MG TAB PO SCH ×2 (08:53→17:48)
[2022-08-26] MEDS: Tamsulosin HCl 0.4 MG CAP PO SCH (08:53)
[2022-08-26] MEDS: Aspirin 81 mg Enteric Coated Tablet PO SCH (08:54)
[2022-08-26] MEDS: Atorvastatin Calcium 40 MG TAB PO SCH (08:54)
[2022-08-26] MEDS: Spironolactone 25 MG TAB PO SCH (08:54)
[2022-08-26] MEDS: Gabapentin 100 MG CAP PO SCH ×2 (08:54→21:18)
[2022-08-26] MEDS: Ferrous Sulfate 325 MG TAB PO SCH (08:55)
[2022-08-26] MEDS: Amlodipine 10 MG TAB PO SCH (08:55)
[2022-08-26] MEDS: Clopidogrel Bisulfate 75 MG TAB PO SCH (08:55)
[2022-08-26] MEDS: Carvedilol 25 MG TAB PO SCH ×2 (08:55→21:18)
[2022-08-26] MEDS: Heparin 5,000 UNITS/ML VIAL SC SCH ×3 (08:56→21:17)
[2022-08-26] MEDS: traMADol HCl 50 MG TAB PO PRN (08:59)
[2022-08-26] MEDS: Acetaminophen 325 MG TAB PO PRN (09:00)
[2022-08-26] MEDS: Lantus 1000 UNITS/10 ML VIAL SC SCH (21:16)
[2022-08-26] MEDS: Montelukast Sodium 10 mg Tablet PO SCH (21:19)
[2022-08-27] MEDS: Heparin 5,000 UNITS/ML VIAL SC SCH (08:37)
[2022-08-27] MEDS: Spironolactone 25 MG TAB PO SCH (08:38)
[2022-08-27] MEDS: Amlodipine 10 MG TAB PO SCH (08:38)
[2022-08-27] MEDS: Aspirin 81 mg Enteric Coated Tablet PO SCH (08:38)
[2022-08-27] MEDS: Atorvastatin Calcium 40 MG TAB PO SCH (08:38)
[2022-08-27] MEDS: Tamsulosin HCl 0.4 MG CAP PO SCH (08:38)
[2022-08-27] MEDS: Sacubitril 49 MG/Valsartan 51 MG TABLET PO SCH (08:38)
[2022-08-27] MEDS: Carvedilol 25 MG TAB PO SCH (08:38)
[2022-08-27] MEDS: Gabapentin 100 MG CAP PO SCH (08:39)
[2022-08-27] MEDS: Ferrous Sulfate 325 MG TAB PO SCH (08:40)
[2022-08-27] MEDS: Collagenase 250 UNITS/GM Ointment 30 GM TUBE TOP SCH (08:40)
[2022-08-27] MEDS: Clopidogrel Bisulfate 75 MG TAB PO SCH (08:40)
[2022-08-27] MEDS: metFORMIN 500 MG TAB PO SCH (08:40)
[2022-08-27 08:44] VITALS: BP 111/63
[2022-08-27 10:13] VITALS: TEMP 97.7
== END 2022-08-27 11:00 | disposition home health service (06) | DRG 57 ==
LOC: NAV ACUTE 08-06 11:47
PROVIDERS: ADMIT Family Medicine; ATTEND Family Medicine
DX: I69.369 Other paralytic syndrome following cerebral infarction affecting unspecified side (principal); N30.00 Acute cystitis without hematuria; Z16.24 Resistance to multiple antibiotics; L89.629 Pressure ulcer of left heel, unspecified stage; I12.9 Hypertensive chronic kidney disease with stage 1 through stage 4 chronic kidney disease, or unspecified chronic kidney disease; E11.22 Type 2 diabetes mellitus with diabetic chronic kidney disease; I25.10 Atherosclerotic heart disease of native coronary artery without angina pectoris; N18.31 Chronic kidney disease, stage 3a; D63.1 Anemia in chronic kidney disease; R53.1 Weakness; B96.4 Proteus (mirabilis) (morganii) as the cause of diseases classified elsewhere; R53.81 Other malaise; E11.51 Type 2 diabetes mellitus with diabetic peripheral angiopathy without gangrene; Z79.82 Long term (current) use of aspirin; Z79.4 Long term (current) use of insulin; Z79.84 Long term (current) use of oral hypoglycemic drugs; Z79.02 Long term (current) use of antithrombotics/antiplatelets; Z79.899 Other long term (current) drug therapy; Z89.611 Acquired absence of right leg above knee
CPT/HCPCS: 36415; 36416; 72220; 80048; 80053; 81001; 85025; 87077; 87086; 87186; 97602; J0696; J1644; J1815; J2543; J3490